=== PATIENT | female | born 1965 ===

== ENCOUNTER 2023-04-19 06:58 | Day surgery (SDC) | payer OTHER ==
[~2023-04-19] VITALS: Ht 170.2 cm; Wt 84.8 kg
[~2023-04-19 06:58] MED LIST: CELEBREX50 MG PO; CHILDREN'S ASPI81 MG PO; GRALISE600 MG PO
[2023-04-19] MEDS ORDERED: OXYC1TAB9 PO (11:45)
== END 2023-04-19 17:35 | disposition home or self-care (01) ==
LOC: CIR.AMB 06:58
PROVIDERS: ATTEND Surgery
DX: K64.2 Third degree hemorrhoids (principal); K64.4 Residual hemorrhoidal skin tags; K62.5 Hemorrhage of anus and rectum; K62.89 Other specified diseases of anus and rectum; K59.09 Other constipation; Z88.0 Allergy status to penicillin; Z20.822 Contact with and (suspected) exposure to COVID-19; E11.9 Type 2 diabetes mellitus without complications; K64.8 Other hemorrhoids